=== PATIENT | female | born 1995 | race African-American/Black ===

== ENCOUNTER 2018-08-07 12:16 | Emergency (ER) | payer BC ==
[~2018-08-07] VITALS: Ht 154.9 cm; Wt 126.0 kg
[2018-08-07 13:16] LABS: IMMATURE GRANULOCYTES 0.3 % (0.0-5.0); MEAN CORPUSCULAR HGB CONC 32.8 g/L CALC (32.0-36.0); NEUT# 8.36 thou/uL (2.00-7.15); RED BLOOD COUNT 5.36 mill/uL (4.20-5.60); RED CELL DISTRI WIDTH 12.8 % (11.5-15.5)
[2018-08-07 13:24] LABS: HEMATOCRIT 45.8 % (37.0-47.0); MEAN CELL VOLUME 85.4 fL CALC (80.0-100.0)
[2018-08-07 13:34] LABS: ALBUMIN 4.4 g/dL (3.2-5.0); ALKALINE PHOSPHATASE 119 u/l (38-126); ANION GAP 15 (6-22 (CALC)); BILIRUBIN, TOTAL 0.6 mg/dL (0.0-1.4); BUN 11 mg/dL (7-17); BUN/CREATININE RATIO 11 (12-20 (CALC)); CARBON DIOXIDE 22 mmol/l (22-30); CHLORIDE 105 mmol/l (95-108); CREATININE 1.1 mg/dL (0.5-1.0); GFR > 60 ML/MIN (>=60 (CALC)); GFR FOR AFR.AMER. > 60 ML/MIN (>=60 (CALC)); POTASSIUM 4.1 mmol/l (3.5-5.1); SGOT/AST 30 u/l (14-36); SODIUM 138 mmol/l (137-146); TOTAL PROTEIN 7.9 g/dL (6.3-8.2)
[2018-08-07 14:10] VITALS: BP 129/84
== END 2018-08-07 14:14 | disposition home or self-care (01) | DRG 204 ==
LOC: ED 12:16
PROVIDERS: Emergency Medicine
DX: R06.00 Dyspnea, unspecified (principal); K56.41 Fecal impaction; R10.12 Left upper quadrant pain; R10.33 Periumbilical pain

== ENCOUNTER 2020-02-22 13:42 | Emergency (ER) | payer OTHER ==
[2020-02-22 14:31] LABS: HEMOGLOBIN 11.7 g/dl (12.0-16.0); IMMATURE GRANULOCYTES 0.4 % (0.0-5.0); MEAN CELL VOLUME 81.3 fL CALC (80.0-100.0); MEAN CORPUSCULAR HGB CONC 34.4 g/dL CAL (32.0-36.0); NEUT# 10.94 thou/uL (2.00-7.15); RED BLOOD COUNT 4.18 mill/uL (4.20-5.60); RED CELL DISTRI WIDTH 13.3 % (11.5-15.5)
[2020-02-22 14:53] LABS: ACT PARTIAL THROMBO TIME 27.2 SECONDS (20.0-32.5)
[2020-02-22 14:59] LABS: ALBUMIN 3.6 g/dL (3.2-5.0); ALKALINE PHOSPHATASE 88 u/l (38-126); ANION GAP 14 (6-22 (CALC)); BILIRUBIN, TOTAL 0.5 mg/dL (0.0-1.4); BUN 8 mg/dL (7-17); BUN/CREATININE RATIO 10 (12-20 (CALC)); CARBON DIOXIDE 18 mmol/l (22-30); CHLORIDE 104 mmol/l (95-108); CREATININE 0.8 mg/dL (0.5-1.0); GFR > 60 ML/MIN (>=60 (CALC)); GFR FOR AFR.AMER. > 60 ML/MIN (>=60 (CALC)); POTASSIUM 3.7 mmol/l (3.5-5.1); SGOT/AST 38 u/l (14-36); SODIUM 132 mmol/l (137-146); TOTAL PROTEIN 6.6 g/dL (6.3-8.2)
[2020-02-22 15:48] LABS: BETA-HCG, QUANT(RESULT NUMBER) 56972 mIU/mL
[2020-02-22 15:52] VITALS: BP 101/67
[2020-02-22 16:01] VITALS: BP 134/87
[2020-02-22 16:03] VITALS: BP 101/67
== END 2020-02-22 16:09 | DRG 779 ==
LOC: ED 13:42
PROC: 30233N1 Transfusion of Nonautologous Red Blood Cells into Peripheral Vein, Percutaneous Approach (ICD-10-PCS; principal; 2020-02-22)
DX: O03.4 Incomplete spontaneous abortion without complication (principal)
CPT/HCPCS: P9016

== ENCOUNTER 2021-08-17 21:38 | Emergency (ER) | payer OTHER ==
[~2021-08-17] VITALS: Ht 165.1 cm; Wt 130.0 kg
[2021-08-18 00:02] VITALS: BP 145/79
== END 2021-08-18 00:22 | disposition home or self-care (01) | DRG 156 ==
LOC: ED 21:38
DX: S02.2XXA Fracture of nasal bones, initial encounter for closed fracture (principal); S01.21XA Laceration without foreign body of nose, initial encounter; Y04.2XXA Assault by strike against or bumped into by another person, initial encounter

== ENCOUNTER 2021-08-23 15:28 | Emergency (ER) | payer OTHER ==
[~2021-08-23] VITALS: Ht 165.1 cm; Wt 110.0 kg
[2021-08-23 16:34] VITALS: BP 145/77
== END 2021-08-23 16:34 | disposition home or self-care (01) | DRG 90 ==
LOC: ED 15:28
DX: S06.0X0A Concussion without loss of consciousness, initial encounter (principal); S01.21XA Laceration without foreign body of nose, initial encounter; Y04.2XXA Assault by strike against or bumped into by another person, initial encounter

== ENCOUNTER 2022-01-18 16:59 | Emergency (ER) | payer OTHER ==
[~2022-01-18] VITALS: Ht 165.1 cm; Wt 52.7 kg
[2022-01-18] VITALS (7 sets, daily range): BP systolic 122–153; BP diastolic 69–92
== END 2022-01-18 18:32 | disposition home or self-care (01) | DRG 605 ==
LOC: ED 16:59
PROC: 0HQ0XZZ Repair Scalp Skin, External Approach (ICD-10-PCS; principal; 2022-01-18)
DX: S01.01XA Laceration without foreign body of scalp, initial encounter (principal); W22.03XA Walked into furniture, initial encounter; Y92.003 Bedroom of unspecified non-institutional (private) residence as the place of occurrence of the external cause

== ENCOUNTER 2022-01-27 15:49 | Emergency (ER) | payer OTHER ==
[~2022-01-27] VITALS: Ht 165.1 cm; Wt 105.0 kg
[2022-01-27 16:17] VITALS: BP 146/72
== END 2022-01-27 16:20 | disposition home or self-care (01) | DRG 950 ==
LOC: ED 15:49
DX: S01.91XD Laceration without foreign body of unspecified part of head, subsequent encounter (principal); X58.XXXD Exposure to other specified factors, subsequent encounter

== ENCOUNTER 2022-02-08 15:52 | Emergency (ER) | payer OTHER ==
[~2022-02-08] VITALS: Ht 165.1 cm; Wt 115.0 kg
[2022-02-08] MEDS ORDERED: MUPIROCIN2 % EX (17:10)
[2022-02-08 17:12] VITALS: BP 132/87
== END 2022-02-08 17:20 | disposition home or self-care (01) | DRG 607 ==
LOC: ED 15:52
DX: L73.9 Follicular disorder, unspecified (principal)

== ENCOUNTER 2022-05-08 14:29 | Emergency (ER) | payer OTHER ==
[~2022-05-08] VITALS: Ht 165.1 cm; Wt 113.3 kg
[~2022-05-08 14:29] MED LIST: MUPIROCIN2 % EX
[2022-05-08] MEDS ORDERED: NAPROXEN500 MG PO (17:15)
[2022-05-08 18:10] VITALS: BP 136/74
== END 2022-05-08 18:19 | disposition home or self-care (01) | DRG 563 ==
LOC: ED 14:29
DX: S63.501A Unspecified sprain of right wrist, initial encounter (principal); W01.0XXA Fall on same level from slipping, tripping and stumbling without subsequent striking against object, initial encounter; Y92.009 Unspecified place in unspecified non-institutional (private) residence as the place of occurrence of the external cause

== ENCOUNTER 2024-03-23 07:37 | Emergency (ER) | payer SELFPAY ==
[~2024-03-23] VITALS: Ht 165.1 cm; Wt 99.0 kg
[~2024-03-23 07:37] MED LIST changes: +KEFLEX500 MG PO; +NAPROXEN500 MG PO
[2024-03-23 08:10] VITALS: BP 141/96
[2024-03-23 08:22] VITALS: BP 131/87
[2024-03-23 08:28] VITALS: BP 131/87
== END 2024-03-23 08:28 | disposition home or self-care (01) | DRG 950 ==
LOC: ED 07:37
DX: S51.811D Laceration without foreign body of right forearm, subsequent encounter (principal); X58.XXXD Exposure to other specified factors, subsequent encounter

== ENCOUNTER 2024-11-05 19:33 | Emergency (ER) | payer SELFPAY ==
[~2024-11-05] VITALS: Ht 165.1 cm; Wt 90.0 kg
[2024-11-05 21:18] VITALS: BP 125/78
[2024-11-05] MEDS ORDERED: AMOXICILLIN & POT CLAVULANATE 875 MG/TAB PO ONE (21:30)
[2024-11-05] MEDS ORDERED: AMOX/K CLAV875 M1 PO (22:36)
[2024-11-05 23:04] VITALS: BP 125/78
== END 2024-11-05 23:06 | disposition home or self-care (01) | DRG 605 ==
LOC: ED 19:33
DX: S61.451A Open bite of right hand, initial encounter (principal); F17.200 Nicotine dependence, unspecified, uncomplicated; W54.0XXA Bitten by dog, initial encounter; Y93.K9 Activity, other involving animal care; Y92.009 Unspecified place in unspecified non-institutional (private) residence as the place of occurrence of the external cause

== ENCOUNTER 2024-11-10 06:34 | Emergency (ER) | payer SELFPAY ==
[~2024-11-10] VITALS: Ht 165.1 cm; Wt 90.0 kg
[~2024-11-10 06:34] MED LIST changes: +AMOX/K CLAV875 M1 PO
[2024-11-10] MEDS ORDERED: DOXYCYCLINE HYCLATE 100 MG in SODIUM CHLORIDE 0.9% 100 ML IV ONE (06:50)
[2024-11-10] MEDS ORDERED: VANCOMYCIN HCL 1 GM in SODIUM CHLORIDE 0.9% 500 ML IV ONE (06:50)
[2024-11-10 07:14] VITALS: BP 101/47
[2024-11-10 07:27] LABS: BASO% 0.6 % (0-3); EOS% 2.8 % (0-8); HEMATOCRIT 48.4 % (37.0-47.0); HEMOGLOBIN 15.8 g/dl (12.0-16.0); IMMATURE GRANULOCYTES 0.1 % (0.0-5.0); LYMPH% 37.9 % (15-41); MEAN CELL VOLUME 95.7 fL CALC (80.0-100.0); MEAN CORPUSCULAR HGB 31.2 pG CALC (26.0-32.0); MEAN CORPUSCULAR HGB CONC 32.6 g/dL CAL (32.0-36.0); MONO% 7.4 % (2-13); NEUT# 4.59 thou/uL (2.00-7.15); NEUT% 51.2 % (42-76); RED BLOOD COUNT 5.06 mill/uL (4.20-5.60); RED CELL DISTRI WIDTH 12.7 % (11.5-15.5)
[2024-11-10 07:42] LABS: ALBUMIN 3.9 g/dL (3.2-5.0); BILIRUBIN, TOTAL 0.4 mg/dL (0.02-1.3); C-REACTIVE PROTEIN 5.2 mg/dL (0-0.9); CREATININE 0.8 mg/dL (0.5-1.0); TOTAL PROTEIN 7.1 g/dL (6.3-8.2)
[2024-11-10 10:30] VITALS: BP 101/47
== END 2024-11-10 10:30 | disposition home or self-care (01) | DRG 605 ==
LOC: ED 06:34
PROVIDERS: Family Medicine
DX: S61.451A Open bite of right hand, initial encounter (principal); W54.0XXA Bitten by dog, initial encounter; Y92.9 Unspecified place or not applicable; B95.7 Other staphylococcus as the cause of diseases classified elsewhere
CPT/HCPCS: J3370

== ENCOUNTER 2024-12-12 19:20 | Emergency (ER) | payer SELFPAY ==
[~2024-12-12] VITALS: Ht 165.1 cm; Wt 99.8 kg
[2024-12-12 20:28] VITALS: BP 123/74
== END 2024-12-12 20:28 | disposition home or self-care (01) | DRG 950 ==
LOC: ED 19:20
DX: S61.411D Laceration without foreign body of right hand, subsequent encounter (principal); X58.XXXD Exposure to other specified factors, subsequent encounter; F17.200 Nicotine dependence, unspecified, uncomplicated

== ENCOUNTER 2024-12-21 00:22 | Emergency (ER) | payer SELFPAY ==
[~2024-12-21] VITALS: Ht 165.1 cm; Wt 99.0 kg
[2024-12-21 00:48] VITALS: BP 142/86
== END 2024-12-21 00:48 | disposition home or self-care (01) | DRG 951 ==
LOC: ED 00:22
DX: Z48.01 Encounter for change or removal of surgical wound dressing (principal); F17.210 Nicotine dependence, cigarettes, uncomplicated